=== PATIENT | male | born 1950 | race African-American/Black ===

== ENCOUNTER 2021-07-27 15:05 | Emergency (ER) | payer MEDICARE ==
[~2021-07-27] VITALS: Ht 167.6 cm; Wt 66.0 kg
[2021-07-27 15:19] VITALS: BP 122/62
[2021-07-27 16:50] LABS: CHLORIDE 112 mEq/L (98-107)
[2021-07-27 16:58] LABS: BASOPHILS % 0.8 % (0.0-2.0); EOSINOPHILS % 1.3 % (0.0-5.0); HEMATOCRIT. 44.3 % (42.0-52.0); HEMOGLOBIN. 13.9 g/dL (14.0-18.0); LYMPHOCYTES % 22.9 % (20.0-50.0); MEAN CORPUSCULAR HEMOGLOBIN 24.9 pg (28.0-32.0); MEAN CORPUSCULAR VOLUME 79.3 fL (80.0-94.0); MEAN PLATELET VOLUME 8.2 fl (7.4-10.4); MONOCYTES % 8.4 % (2.0-8.0); NEUTROPHILS % 66.6 % (40.0-76.0); PLATELET 152 x1000/uL (130-400); RED BLOOD CELL COUNT 5.59 mill/uL (4.7-6.1); RED CELL DISTRIBUTION WIDTH 15.2 % (11.6-14.6)
[2021-07-27 18:07] LABS: CLARITY URINE CLEAR (CLEAR); COLOR URINE YELLOW (YELLOW); KETONES URINE NEGATIVE (NEGATIVE); LEUKOCYTE ESTERASE URINE 1+ (NEGATIVE); NITRITE URINE NEGATIVE (NEGATIVE); OCCULT BLOOD URINE NEGATIVE (NEGATIVE); PH URINE 6.5 (4.5-8.0); PROTEIN URINE NEGATIVE (NEGATIVE); SPECIFIC GRAVITY URINE 1.016 (1.005-1.030)
[2021-07-27] MEDS ORDERED: PHEN20SP MT (18:38)
[2021-07-27] MEDS ORDERED: IBUP-2028 MT (18:38)
== END 2021-07-28 01:33 | disposition home or self-care (01) ==
LOC: ER 15:05
DX: R07.0 Pain in throat (principal)
CPT/HCPCS: 36415; 71045; 80053; 81003; 85025; 99284

== ENCOUNTER 2022-02-03 14:51 | Emergency (ER) | payer MEDICARE ==
[~2022-02-03] VITALS: Ht 167.6 cm; Wt 68.0 kg
[~2022-02-03 14:51] MED LIST: IBUP-2028 MT; PHEN20SP MT
[2022-02-03 14:55] VITALS: BP 149/82
[2022-02-03] MEDS ORDERED: MAGNESIUM/ALUMINUM HYDROXIDE/SIMETHICONE 30ML UDC PO STA (19:05)
[2022-02-03] MEDS ORDERED: VISCOUS LIDOCAINE 2% 15 ML UDC PO STA (19:05)
[2022-02-03] MEDS ORDERED: DICYCLOMINE 10 MG/5 ML ORAL SYR PO STA (19:05)
[2022-02-03] MEDS ORDERED: FAMOTIDINE 20MG TABLET PO ONE (19:15)
== END 2022-02-03 20:20 | disposition home or self-care (01) ==
LOC: ER 14:51
DX: R13.10 Dysphagia, unspecified (principal)
CPT/HCPCS: 99284